=== PATIENT | male | born 1975 | race Caucasian/White ===

== ENCOUNTER → 2021-04-22 | Outpatient (CLI) | payer BC ==
[~2021-04-22] MED LIST: IBUPROFEN600 MG PO; KEFLEX CAP 500500 MG PO; LIPITOR TAB 1010 MG PO; NORCO 5-325 TA1 EACH PO; PROTONIX40 MG PO
== END ==
LOC: KOH-I 10:41
DX: J33.9 Nasal polyp, unspecified (principal)
CPT/HCPCS: 70486